=== PATIENT | female | born 1995 ===

== ENCOUNTER 2016-11-24 13:05 | Emergency (ER) | payer MEDICAID ==
[2016-11-24 13:11] VITALS: RESP 16; TEMP 98.6; O2SAT 99
[2016-11-24 15:01] LABS: BASO % 0.5 % (0.0-2.0); EOS # 0.2 K/uL (0.0-0.7); EOS % 1.7 % (0.0-4.0); HEMOGLOBIN 12.3 g/dL (12.0-16.0); LYMPH % 20.5 % (20.0-40.0); MEAN CELL VOLUME 84.2 fl (81.0-99.0); MEAN CORPUSCULAR HGB CONC 33.3 g/dL (33.0-37.0); MEAN PLATELET VOLUME 7.2 fl (7.2-11.7); MONO # 0.6 K/uL (0.0-0.8); MONO % 6.5 % (0.0-10.0); NEUT # 6.8 K/uL (1.8-7.0); NEUT % 70.8 % (50.0-75.0); RBC 4.4 Mil/uL (3.80-5.20); RED CELL DISTRIBUTION WIDTH 14.4 % (11.5-14.5); WHITE BLOOD COUNT 9.6 K/uL (4.8-10.8)
[2016-11-24 15:17] LABS: ALB/GLOB RATIO 1.5 (1.0-2.1); ALBUMIN 4.1 g/dL (3.5-5.0); ALT/SGPT 45 U/L (9-52); AST/SGOT 29 U/L (14-36); BLOOD UREA NITROGEN 10 mg/dl (7-17); CALCIUM 9.1 mg/dL (8.4-10.2); GFR AFRICAN-AMERICAN > 60; GFR NON-AFRICAN AMERICAN > 60
--- NOTE | 2016-11-24 15:20 | US ---
PROCEDURE: OB Pelvic Ultrasound HISTORY: Right-sided pelvic pain TRANSVAGINAL PELVIC ULTRASOUND WAS PERFORMED.: COMPARISON: None available. FINDINGS: UTERUS: Gestational sac: Single intrauterine gestation. Heart rate: 136 bpm. age (Ultrasound estimated): 6 weeks and 2 days Daniela-gestational hemorrhage: None. Date of delivery (Ultrasound estimated) : 07/18/2017 Uterus measures 8.0 x 3.6 x 5.8 cm. Normal in size and appearance. CERVIX: Long and closed. No cervical abnormality seen. The cervix measures 3.6 cm. RIGHT OVARY: Not visualized. LEFT OVARY: Measures 3.5 x 2.1 x 2.2 cm. No solid mass. Normal flow. FREE FLUID: None. OTHER FINDINGS: None. IMPRESSION: Single live intrauterine gestation with mean gestational age of 6 weeks and 2 days. The estimated date of delivery by ultrasound is 07/18/2017. The ultrasound dates correspond with the clinical dates.
--- NOTE | 2016-11-24 15:31 | ED PDOC ---
HPI: General Adult Time Seen by Provider: 11/24/16 13:27 Chief Complaint (Nursing): Abdominal Pain History Per: Patient Additional Complaint(s): Pt. states for the past 3 days she's had R sided pelvic pain associated with dysuria. Pt. states she is currently ~6 weeks . Pt. has already had care but no US yet. Denies vaginal bleeding, hx of ectopic , N /V/D, fever, back pain. Past Medical History Reviewed: Historical Data, Nursing Documentation, Vital Signs Vital Signs: Last Vital Signs Temp 98.6 F 11/24/16 13:08 Pulse 71 11/24/16 16:28 Resp 16 11/24/16 16:28 BP 129/60 11/24/16 16:28 Pulse Ox 99 11/24/16 16:29 - Family History Family History: States: No Known Family Hx - Home Medications Home Medications: Ambulatory Orders Medication Instructions Recorded Dicyclomine [Bentyl] 10 mg PO QID PRN #10 cap 03/04/15 Ibuprofen 600 mg PO Q8 PRN #14 tablet 07/13/15 - Allergies Allergies/Adverse Reactions: Allergies Allergy/AdvReac Type Severity Reaction Status Date / Time No Known Allergies Allergy Verified 03/04/15 12:24 Review of Systems ROS Statement: Except As Marked, All Systems Reviewed And Found Negative Genitourinary Female: Positive for: Dysuria Physical Exam - Reviewed Nursing Documentation Reviewed: Yes Vital Signs Reviewed: Yes - Physical Exam Appears: Positive for: Well, Non-toxic, No Acute Distress Head Exam: Positive for: ATRAUMATIC, NORMAL INSPECTION, NORMOCEPHALIC Skin: Positive for: Normal Color, Warm. Negative for: Rash Eye Exam: Positive for: EOMI, Normal appearance, PERRL ENT: Positive for: Normal ENT Inspection Neck: Positive for: Normal, Painless ROM Cardiovascular/Chest: Positive for: Regular Rate, Rhythm Respiratory: Positive for: CNT, Normal Breath Sounds Gastrointestinal/Abdominal: Positive for: Normal Exam, Bowel Sounds, Soft. Negative for: Tenderness Back: Positive for: Normal Inspection. Negative for: L CVA Tenderness, R CVA Tenderness Extremity: Positive for: Normal ROM Neurologic/Psych: Positive for: Alert, Oriented - Laboratory Results Result Diagrams: 11/24/16 14:58 11/24/16 14:58 Urine POC: Positive Urine dip results: Negative for: Leukocyte Esterase, Blood, Nitrate, Ketones, Glucose, Bilirubin, Protein - ECG O2 Sat by Pulse Oximetry: 99 - Progress ED Course And Treament: Labs ordered. TVUS: SLIUP; 6 weeks 2 days gestation Disposition - Clinical Impression Clinical Impression: Abdominal pain during - Patient ED Disposition Is Patient to be Admitted: No - Disposition Disposition: Routine/Home Disposition Time: 16:26 Condition: STABLE Additional Instructions: FOLLOW UP WITH YOUR OBGYN IN 2 DAYS WITHOUT FAIL. RETURN TO ED IMMEDIATELY IF SYMPTOMS PERSIST OR WORSEN. Instructions: Abdominal Pain in (ED)
[2016-11-24 16:29] VITALS: BP 129/60; PULSE 71
== END 2016-11-24 16:42 | disposition home or self-care (01) ==
LOC: H.ER 13:05
DX: O26.891 Other specified pregnancy related conditions, first trimester (principal); Z3A.01 Less than 8 weeks gestation of pregnancy

== ENCOUNTER 2017-12-02 10:24 | Emergency (ER) | payer OTHER ==
[2017-12-02 10:29] VITALS: O2SAT 98
[2017-12-02 10:30] VITALS: BMI 29.4
--- NOTE | 2017-12-02 10:56 | ED PDOC ---
HPI: Abdomen Time Seen by Provider: 12/02/17 10:39 Chief Complaint (Nursing): Abdominal Pain Chief Complaint (Provider): abd pain, diarrhea History Per: Patient Additional Complaint(s): 22-year-old female with no past medical history presents with abdominal pain and watery, nonbloody diarrhea that started yesterday. Patient states she has had approximately 5 episodes of diarrhea and has a decreased appetite. She denies nausea or vomiting. Patient denies consumption of any foods that could' ve caused that. No recent travel. No fever or chills. PMD: none Past Medical History Reviewed: Historical Data, Nursing Documentation, Vital Signs Vital Signs: Last Vital Signs Temp 98.2 F 12/02/17 10:28 Pulse 84 12/02/17 10:28 Resp 16 12/02/17 10:28 BP 117/58 L 12/02/17 10:28 Pulse Ox 98 12/02/17 11:01 - Medical History PMH: No Chronic Diseases - Surgical History Surgical History: (x 1) - Family History Family History: States: No Known Family Hx - Living Arrangements Living Arrangements: With Family - Social History Current smoker - smoking cessation education provided: No Alcohol: None Drugs: Denies - Home Medications Home Medications: Ambulatory Orders Medication Instructions Recorded Dicyclomine [Bentyl] 10 mg PO QID PRN #10 cap 03/04/15 Ibuprofen 600 mg PO Q8 PRN #14 tablet 07/13/15 Ibuprofen [Motrin] 600 mg PO Q6H PRN #30 tab 07/18/17 Ferrous Fumarate [Mark-Sequel] 324 mg PO BID #60 tab 07/19/17 - Allergies Allergies/Adverse Reactions: Allergies Allergy/AdvReac Type Severity Reaction Status Date / Time No Known Allergies Allergy Verified 12/02/17 10:34 Review of Systems ROS Statement: Except As Marked, All Systems Reviewed And Found Negative Constitutional: Negative for: Fever, Chills, Weakness Cardiovascular: Negative for: Chest Pain Respiratory: Negative for: Cough Gastrointestinal: Positive for: Abdominal Pain, Diarrhea. Negative for: Nausea , Vomiting, Constipation, Melena, Hematochezia, Hematemesis, Rectal Pain Genitourinary Female: Negative for: Dysuria, Vaginal Discharge, Vaginal Bleeding Physical Exam - Reviewed Nursing Documentation Reviewed: Yes Vital Signs Reviewed: Yes - Physical Exam Appears: Positive for: Well, Non-toxic, No Acute Distress Skin: Positive for: Normal Color. Negative for: Rash Eye Exam: Positive for: Normal appearance Neck: Positive for: Normal Cardiovascular/Chest: Positive for: Regular Rate, Rhythm Respiratory: Positive for: Normal Breath Sounds Gastrointestinal/Abdominal: Positive for: Soft. Negative for: Tenderness, Distended, Guarding, Rebound Back: Negative for: L CVA Tenderness, R CVA Tenderness Extremity: Positive for: Normal ROM Neurologic/Psych: Positive for: Alert, Oriented - Laboratory Results Result Diagrams: 12/02/17 11:22 12/02/17 11:22 - ECG O2 Sat by Pulse Oximetry: 98 Pulse Ox Interpretation: Normal Medical Decision Making Medical Decision Makin22 y/o female with abd pain and diarrhea. Abdominal exam is benign. Plan: Urine dip Urine test CBC CMP Lipase IVF PO bentyl and tylenol Patient is aware of diagnostic testing results. All questions answered. Patient states she feels better after meds given in ED. Advised fluids, bland diet and Tylenol as needed. Patient referred to clinic for follow-up. Disposition - Clinical Impression Clinical Impression: Diarrhea - Patient ED Disposition Is Patient to be Admitted: No Counseled Patient/Family Regarding: Studies Performed, Diagnosis, Need For Followup - Disposition Referrals: [facility] [Outside] Disposition: Routine/Home Disposition Time: 13:22 Condition: IMPROVED Additional Instructions: Tylenol for pain as needed. Follow BRAT diet - bananas, rice, apples and toast, to help relieve diarrhea. Drink plenty of clear liquids. Follow up with clinic in 2-3 days. Instructions: Diarrhea in Adolescents and Adults, [place] Diet Forms: [employer] (Chinese) Print Language: ROMANSH Results - Lab Results Lab Results: 12/02/17 12/02/17 11:22 11:22 WBC 8.1 RBC 4.78 Hgb 13.2 Hct 38.9 MCV 81.4 D MCH 27.6 MCHC 33.9 RDW 17.0 H Plt Count 238 MPV 7.5 Neut % (Auto) 72.2 Lymph % (Auto) 18.4 L Victoria % (Auto) 7.7 Eos % (Auto) 1.4 Baso % (Auto) 0.3 Neut # (Auto) 5.8 Lymph # (Auto) 1.5 [place] # (Auto) 0.6 Eos # (Auto) 0.1 Baso # (Auto) 0.0 Sodium 139 Potassium 3.9 Chloride 106 Carbon Dioxide 21 L Anion Gap 16 BUN 12 Creatinine 0.5 L Est GFR ( Amer) > 60 Est GFR (Non-Af Amer) > 60 Random Glucose 90 Calcium 9.0 Total Bilirubin 0.5 AST 26 ALT 26 Alkaline Phosphatase 71 Total Protein 7.0 Albumin 4.1 Globulin 3.0 Albumin/Globulin Ratio 1.4 Lipase 115
[2017-12-02] MEDS ORDERED: Sodium Chloride 0.9% 1,000 ML IV STA (10:57)
[2017-12-02 11:35] LABS: BASO % 0.3 % (0.0-2.0); EOS # 0.1 K/uL (0.0-0.7); EOS % 1.4 % (0.0-4.0); HEMOGLOBIN 13.2 g/dL (12.0-16.0); LYMPH # 1.5 K/uL (1.0-4.3); LYMPH % 18.4 % (20.0-40.0); MEAN CELL VOLUME 81.4 fl (81.0-99.0); MEAN CORPUSCULAR HEMOGLOBIN 27.6 pg (27.0-31.0); MEAN CORPUSCULAR HGB CONC 33.9 g/dL (33.0-37.0); MEAN PLATELET VOLUME 7.5 fl (7.2-11.7); MONO # 0.6 K/uL (0.0-0.8); MONO % 7.7 % (0.0-10.0); NEUT # 5.8 K/uL (1.8-7.0); NEUT % 72.2 % (50.0-75.0); NRBC % 0.1 % (0.0-0.0); RBC 4.78 Mil/uL (3.80-5.20); WHITE BLOOD COUNT 8.1 K/uL (4.8-10.8)
[2017-12-02 11:46] LABS: ALB/GLOB RATIO 1.4 (1.0-2.1); ALBUMIN 4.1 g/dL (3.5-5.0); ALT/SGPT 26 U/L (9-52); AST/SGOT 26 U/L (14-36); BLOOD UREA NITROGEN 12 mg/dl (7-17); GFR AFRICAN-AMERICAN > 60; GFR NON-AFRICAN AMERICAN > 60; LIPASE 115 U/L (23-300)
[2017-12-02 15:10] VITALS: BP 120/70; PULSE 70; RESP 20; TEMP 98.3
== END 2017-12-02 15:08 | disposition home or self-care (01) ==
LOC: H.ER 10:24
DX: R19.7 Diarrhea, unspecified (principal)
CPT/HCPCS: 80053; 81025; 83690; 85025; 99283; J7030